=== PATIENT | male | born 1995 | race African-American/Black ===

== ENCOUNTER → 2020-06-14 | Outpatient (CLI) | payer OTHER ==
[~2020-06-14] MED LIST: METHACHOLINE KIT (J7674) INH ONE
--- NOTE | 2020-06-21 11:40 | PFTRPT ---
Height: 70.25 Inches Weight: 195.00 Lbs BSA: 2.07 Diagnosis: R06.00 DATE: 06/14/2020 ORDERED BY: Luis Melgar M.D. QUALITY: Study of excellent technical quality. PROCEDURE: Under protocol, methacholine was administered. At a dose of 10 mg or 63.875 CDUs, a 23% decline of the FEV1 was noted. PC of 7.34 does meet criteria for a positive test. Flow rates did return to baseline post-bronchodilator administration. IMPRESSION: Positive methacholine challenge study. MTDD
== END ==
LOC: M CARPUL 13:42
PROVIDERS: ATTEND Physician Assistant
DX: R06.00 Dyspnea, unspecified (principal)
CPT/HCPCS: 94070; J7674

== ENCOUNTER → 2022-09-30 | Outpatient (CLI) | payer OTHER | LOC: M PLAIMG 11:24 | PROVIDERS: ATTEND General Practice | DX: M25.561 Pain in right knee (principal); M79.671 Pain in right foot; M79.672 Pain in left foot ==

== ENCOUNTER → 2022-10-15 | Outpatient (REF) | LOC: M PLAIMG 12:42 | PROVIDERS: ATTEND Internal Medicine | DX: R52 Pain, unspecified (principal) ==

== ENCOUNTER → 2022-12-09 | Outpatient (CLI) | payer OTHER ==
[2022-12-09 17:14] LABS: PLATELET COUNT, AUTOMATED 295 10^3/uL (150-450)
[2022-12-09 17:34] LABS: INR 0.86; PROTHROMBIN TIME 11.9 SECONDS (12.5-14.5)
[2022-12-09 17:35] LABS: PARTIAL THROMBOPLASTIN TIME 33.7 SECONDS (24.8-34.2)
== END ==
LOC: M LAB 16:25
PROVIDERS: ATTEND Physician Assistant
DX: Z01.812 Encounter for preprocedural laboratory examination (principal)